=== PATIENT | male | born 1980 | race Caucasian/White ===

== ENCOUNTER 2020-01-09 21:38 | Inpatient (IN) | payer OTHER ==
[~2020-01-09] VITALS: Ht 182.9 cm; Wt 89.2 kg
[2020-01-09 21:55] LABS: BASOPHILS ABSOLUTE AUTO 0.04 K/mm3 (0.00-0.23); BASOPHILS PERCENT AUTO 0 % (0-2); EOSINOPHILS ABSOLUTE AUTO 0.06 K/mm3 (0.00-0.68); EOSINOPHILS PERCENT AUTO 1 % (0-6); Hematocrit 47.6 % (37.0-53.0); Hemoglobin 15.4 g/dL (13.5-17.5); IMMATURE GRAN ABSOLUTE AUTO 0.36 K/mm3 (0.00-0.10); IMMATURE GRAN PERCENT AUTO 3 % (0-1); LYMPHOCYTES ABSOLUTE AUTO 5.79 K/mm3 (0.84-5.20); LYMPHOCYTES PERCENT AUTO 54 % (21-46); MONOCYTES ABSOLUTE AUTO 0.64 K/mm3 (0.16-1.47); MONOCYTES PERCENT AUTO 6 % (4-13); Mean Corpuscular HGB Conc 32.4 g/dL (31.5-36.5); Mean Corpuscular Volume 96 fL (80-100); Mean Platelet Volume 9.1 fL (9.1-12.4); NEUTROPHILS ABSOLUTE AUTO 3.81 K/mm3 (1.96-9.15); NEUTROPHILS PERCENT AUTO 36 % (41-73); NRBC ABSOLUTE 0.02 K/mm3 (0.00-0.02); NRBC Auto 0.2 /100 WBC (0.0-0.2); Platelet Count 305 K/mm3 (150-400); RDW Coefficient Variation 12.5 % (11.7-14.2); RDW Standard Deviation 43.8 fL (35.1-46.3); Red Blood Cell Count 4.96 M/mm3 (4.30-5.90)
[2020-01-09 22:08] LABS: Source, Urine Catheter
[2020-01-09 22:15] LABS: Ethanol (Alcohol), Blood, Med 134 mg/dL; Troponin I <0.015 ng/mL (0.000-0.040)
[2020-01-09 22:16] LABS: Alanine Aminotransfer (ALT/SGP 117 U/L (12-78); Albumin, Blood 3.8 g/dL (3.4-5.0); Alk Phos 118 U/L (50-136); Anion Gap 10 mmol/L (6-16); Aspartate Aminotrans (AST/SGOT 116 U/L (12-37); Bilirubin, Total 0.2 mg/dL (0.1-1.0); Blood Urea Nitrogen 12 mg/dL (8-24); CO2, Blood 24 mmol/L (21-32); Chloride, Blood 108 mmol/L (98-108); Globulin, Blood 3.8 g/dL (2.2-4.0); Glomerular Filtration Rate >60 (60-); Glucose, Blood 156 mg/dL (70-99); Potassium, Blood 3.7 mmol/L (3.5-5.5); Sodium, Blood 142 mmol/L (136-145); Total Protein, Blood 7.6 g/dL (6.4-8.2)
[2020-01-09 22:19] LABS: PO2 Arterial 101 mmHg (80-100)
[2020-01-09 22:20] LABS: PCO2 Arterial 72.7 mmHg (35-45)
[2020-01-09 22:23] LABS: Appearance, Urine Hazy (Clear); Bacteria Few /hpf; Bilirubin, Urine Neg (Neg); Blood, Urine 2+ (Neg); Color, Urine Pale Yellow (P-Yellow); Glucose Qualitative, Urine Neg (Neg); Ketones, Urine Neg (Neg); Leukocyte Esterase, Urine Neg (Neg); Nitrite, Urine Neg (Neg); Protein, Urine 2+ (Neg); Red Blood Cells, Urine 0-2 /hpf (0-2); Specific Gravity, Urine 1.025 (1.003-1.022); Squamous Epithelial Cells Not Seen /hpf (Few); Urobilinogen, Urine NORM (Normal); White Blood Cells, Urine Rare /hpf (0-5)
[2020-01-09 22:24] LABS: Amorphous Mod (0-Heavy); Mucus Light (0-Heavy)
[2020-01-09 22:25] LABS: U Amphetamine Screen DETECTED
[2020-01-09 22:26] LABS: U Barbituate Screen Not Detected; U Benzodiazapine Screen Not Detected; U Buprenorphine Screen Not Detected; U Cannabinoids Screen DETECTED; U Cocaine Screen Not Detected; U Methadone Screen Not Detected; U Methamphetamine Screen Not Detected; U Opiates Screen Not Detected; U Oxycodone Screen Not Detected; U Phencyclidine Screen Not Detected; U Propoxyphene Screen Not Detected
[2020-01-09 23:32] LABS: Magnesium, Blood 2.3 mg/dL (1.6-2.4)
--- NOTE | 2020-01-10 00:02 | NUR ---
PT ARRIVED ON UNIT FROM ED S/P CARDIAC ARREST PT INTUBATED AND SEDATED. PROPOFOL INFUSING AT 20MCG/KG/MIN VIA 18G TO R AC. VENT SETTINGS: AC 18, TV 500, PEEP 10; FIO2 80%. PT IS UNRESPONSIVE AT THIS TIME. RECENTLY MEDICATED WITH VERSED WHILE PT WAS IN CT PER ED RN REPORT. HOWEVER, PER REPORT PT WAS NOTED TO OPEN EYES AND TRACK. OG TUBE HOOKED TO LIS WITH UNDIGESTED/BROWN PARTICLES NOTED IN CANISTER. LUNG SOUNDS ARE COARSE T/O ALL LOBES; ATTEMPTED ET SUCTION WITH NO RESULTS. PT APPEARS TO BE IN NSR WITH HR IN THE 90'S. BP'S ON THE SOFTER SIDE WITH SBP 70'S. CALLED DR. QUIROZ WITH ORDERS TO ADMINSTER A 500CC BOLUS OF NS; IF UNEFFECTIVE ADMINSTER A SECOND 500CC BOLUS OF NS. BOLUS IS CURRENTLY INFUSING AT THIS TIME; WILL CONTINUE TO MONITOR AND ASSESS. TEMP ZAMUDIO PROBE IS PATENT AND DRAINING HAZY, YELLOW URINE TO GRAVITY. NO FAMILY AT BEDSIDE; NOR HAS FAMILY CALLED UNIT TO CHECK ON PT'S STATUS.
[2020-01-10 03:19] LABS: BASOPHILS PERCENT AUTO 0 % (0-2); EOSINOPHILS PERCENT AUTO 0 % (0-6); Hematocrit 44.4 % (37.0-53.0); Hemoglobin 14.8 g/dL (13.5-17.5); IMMATURE GRAN PERCENT AUTO 0 % (0-1); LYMPHOCYTES ABSOLUTE AUTO 0.52 K/mm3 (0.84-5.20); LYMPHOCYTES PERCENT AUTO 43 % (21-46); MONOCYTES ABSOLUTE AUTO 0.02 K/mm3 (0.16-1.47); MONOCYTES PERCENT AUTO 2 % (4-13); Mean Corpuscular HGB 31.3 pg (26.0-34.0); Mean Corpuscular HGB Conc 33.3 g/dL (31.5-36.5); Mean Corpuscular Volume 94 fL (80-100); NEUTROPHILS ABSOLUTE AUTO 0.67 K/mm3 (1.96-9.15); NEUTROPHILS PERCENT AUTO 55 % (41-73); Platelet Count 190 K/mm3 (150-400); RDW Coefficient Variation 12.6 % (11.7-14.2); RDW Standard Deviation 43.4 fL (35.1-46.3); Red Blood Cell Count 4.73 M/mm3 (4.30-5.90); White Blood Cell Count 1.21 K/mm3 (4.00-11.30)
[2020-01-10 03:40] LABS: Alanine Aminotransfer (ALT/SGP 90 U/L (12-78); Alk Phos 72 U/L (50-136); Anion Gap 4 mmol/L (6-16); Aspartate Aminotrans (AST/SGOT 91 U/L (12-37); Bilirubin, Total 0.5 mg/dL (0.1-1.0); Blood Urea Nitrogen 16 mg/dL (8-24); Bun/Creatinine Ratio 14.3 (12.0-20.0); CO2, Blood 26 mmol/L (21-32); Calcium, Blood 7.6 mg/dL (8.5-10.1); Chloride, Blood 113 mmol/L (98-108); Creatinine, Blood 1.12 mg/dL (0.60-1.20); Glomerular Filtration Rate >60 (60-); Glucose, Blood 87 mg/dL (70-99); Potassium, Blood 4.4 mmol/L (3.5-5.5); Sodium, Blood 143 mmol/L (136-145)
--- NOTE | 2020-01-10 05:18 | NUR ---
END OF SHIFT SUMMARY PT HAS REMAINED INTUBATED/SEDATED. PROPOFOL AT 30MCG/KG/MIN. VENT SETTINGS REMAIN UNCHANGED WITH AC 18, TV 500, PEEP 10, FIO2 60%. PT APPEARS COMFORTABLY SEDATED. STILL ABLE TO OPEN EYES TO VERBAL/NOXIOUS STIMULI. ABLE TO FOLLOW COMMANDS. REORIENTED TO EVENT AND PLACE. PT CONTINUES TO HAVE A PRODUCTIVE COUGH PRODUCING COPIOUS AMOUNTS OF THICK, BROWN SECRETIONS S/P ASPIRATION IN THE FIELD WHEN SHAWNA TUBE WAS IN PLACE. PT IS CURRENTLY RECEIVING IV ZOSYN FOR ABO COVERAGE. BLOOD PRESSURES REMAIN ON THE SOFTER SIDE WITH SYSTOLIC IN THE 90'S; HOWEVER, MAP'S HAVE BEEN GREATER THAN 60 MMHG. PT REMAINS NSR WITH HR 90'S. PT RECEIVED A 1L BOLUS D/T LOW BP'S FOLLOWED BY MAINTENANCE FLUID AT 75MLS/HR. ZAMUDIO CATHETER REMAINS PATENT AND DRAINING HAZY YELLOW URINE TO GRAVITY. BILATERAL SOFT WRIST RESTRAINTS REMAIN IN PLACE TO PREVENT SELF EXTUBATION. WILL CONTINUE TO MONITOR UNTIL REPORT IS HANDED OFF TO ONCOMING RN.
[2020-01-10 05:20] LABS: PCO2 Arterial 44.2 mmHg (35-45); PO2 Arterial 88.7 mmHg (80-100); pH Blood Arterial 7.35 (7.35-7.45)
--- NOTE | 2020-01-10 09:40 | NUR ---
DR MATIAS IN TO ASSESS PT. PROPOFOL PLACED ON STANDBY AT THIS TIME W/ INTENTIONS TO EXTUBATE.
--- NOTE | 2020-01-10 13:49 | NUR ---
PT UPDATE: COMPLETED SWALLOW EVALUATION. PT DID WELL WITH ALL ASPECTS OF TESTS. PT WAS GIVEN SOME APPLE JUICE AND JELLO AFTER PASSING SWALLOW EVAL. WILL DISCUSS ADVANCING DIET WITH
--- NOTE | 2020-01-10 16:29 | NUR ---
SHIFT SUMMARY: PT WAS EXTUBATED AT 0950 THIS AM AND INITIALLY ON 6L 02 VIA OXYMIZER, PT'S SPO2 DECREASES R/T PT MOUTH BREATHING. PT NOW ON 4L 02 VIA N/C AND MAY BE ABLE TO CONTINUE TO WEAN DOWN 02. PT ABLE TO USE CALL LIGHT APPROPRIATELY. ANSWERS QUESTIONS APPROPRIATELY AND FOLLOWS COMMANDS. PT REC'ING IV FENTANYL FOR CHEST PAIN R/T CPR. LUNGS ARE COARSE T/O ALL LUNG ANN, THAT CLEAR WITH STRONG COUGH. PT CONTINUE TO PRODUCE COPIOUS AMTS OF THICK, BROWN SPUTUM. HR REGULAR, SR-90'S RANGE. NS-TKO ABD SOFT/ROUND/NON-TENDER TO PALPATION. BT'S ACTIVE X 4 QUADS. ADVANCE DIET TOLERATED. ZAMUDIO CATHETER IN PLACE DRAINING CLEAR, YELLOW URINE TO GRAVITY. PT ASKED TO LEAVE ZAMUDIO IN PLACE A LITTLE LONGER HE IS STILL SOMEWHAT DROWSY AND WORRIED HE WILL BE INCONTINENT.
--- NOTE | 2020-01-10 18:17 | NUR ---
SHIFT SUMMARY: PT WAS EXTUBATED EARLIER THIS SHIFT. LUNGS REMAIN COARSE T/O AT TIMES, HOWEVER, BECOME CLEAR AFTER HIS PRODUCTIVE COUGH THAT PRODUCES THICK, BROWN SPUTUM. CURRENTLY ON 4L 02 VIA N/C WITH SP02 >90%. PT REMAINS SOMEWHAT DROWSY SINCE EXTUBATION, BUT AWAKENS EASILY TO VERBAL STIMULI. ANSWERS QUESTIONS APPROPRIATELY AND ABLE TO REPOSITION SELF IN BED WITH MINIMAL ASSISTANCE. PT MEDICATED WITH FENTANYL FOR CHEST PAIN R/T CPR. PT STARTED ON CLEAR LIQUID AND TOLERATING WELL, AFTER PASSING BEDSIDE SWALLOW EVALUATION. CAN ADVANCE TOLERATED.
--- NOTE | 2020-01-10 19:00 | NUR ---
INITAL SHIFT ASSESSMENT BED SIDE REPORT RECIEVED FROM OFF GOING RN RANDA. PT IS STABLE AT THIS TIME. ALERT AND ORIENTED. STATES HE HAS CHEST PAIN WHEN MOVING, BUT NONE AT REST. HE IS REQUESTING SOMETHING FOR PAIN RELIEF AT THIS TIME. WILL GIVE HIM IV FENTANYL AND MONITOR FOR RELIEF. PT HAS CALL LIGHT WITHIN REACH AND BED IN LOW POSITION. OVERALL ASSESSMENT IS BENIGN. ZAMUDIO CATH IN PLACE DRAINING CLEAR YELLOW URINE. 3L N/C IN PLACE WITH NO S/S OF RESPIRATORY DISTRESS. WILL CON'T TO TITRATE DOWN OXYGEN INDICATED T/O SHIFT. PT IS DRINKING LOTS OF WATER, BUT DOES NOT WANT ANY FOOD CURRENTLY. VITALS ARE STABLE. WILL CON'T TO MONITOR PT AND KEEP SAFE T/O SHIFT.
--- NOTE | 2020-01-10 19:04 | NUR ---
REPORTED OFF TO BERNAROD TURNER WHOM WILL NOW ASSUME CARE OF THIS PT.
--- NOTE | 2020-01-11 00:37 | NUR ---
SHIFT UPDATE PT HAS BEEN RESTING MOST OF THE NIGHT. HE IS REPOSITIONING HIMSELF IN BED. OFFERED TO GIVE HIM MORE FENTANYL IV FOR PAIN CONTROL TO CHEST, BUT HE DID NOT WANT ANY. HE STATES HE IS FINE UNLESS HE IS MOVING ABOUT. VITALS CON'T TO BE STABLE. WILL CON'T TO MONITOR PT.
[2020-01-11 03:06] LABS: Hematocrit 38.3 % (37.0-53.0); Hemoglobin 12.9 g/dL (13.5-17.5); Mean Corpuscular HGB Conc 33.7 g/dL (31.5-36.5); Mean Corpuscular Volume 92 fL (80-100); Platelet Count 166 K/mm3 (150-400); RDW Coefficient Variation 12.5 % (11.7-14.2); RDW Standard Deviation 42.1 fL (35.1-46.3); Red Blood Cell Count 4.16 M/mm3 (4.30-5.90); White Blood Cell Count 8.86 K/mm3 (4.00-11.30)
[2020-01-11 03:22] LABS: Albumin, Blood 2.6 g/dL (3.4-5.0); Anion Gap 4 mmol/L (6-16); Blood Urea Nitrogen 12 mg/dL (8-24); Bun/Creatinine Ratio 15.7 (12.0-20.0); CO2, Blood 28 mmol/L (21-32); Calcium, Blood 7.9 mg/dL (8.5-10.1); Chloride, Blood 107 mmol/L (98-108); Creatinine, Blood 0.77 mg/dL (0.60-1.20); Glomerular Filtration Rate >60 (60-); Glucose, Blood 101 mg/dL (70-99); Potassium, Blood 3.6 mmol/L (3.5-5.5); Sodium, Blood 139 mmol/L (136-145)
[2020-01-11 03:39] LABS: BAND PERCENT MAN 30 % (0-8); BASOPHILS PERCENT MAN 0 % (0-2); EOSINOPHILS PERCENT MAN 0 % (0-6); LYMPHOCYTES ABSOLUTE MAN 1.06 K/mm3 (0.84-5.20); LYMPHOCYTES PERCENT MAN 12 % (21-46); METAMYELOCYTE ABSOLUTE MAN 0.17 K/mm3 (0.00-0.00); METAMYELOCYTE PERCENT MAN 2 % (0-0); MONOCYTES ABSOLUTE MAN 0.26 K/mm3 (0.16-1.47); MONOCYTES PERCENT MAN 3 % (4-13); NEUTROPHILS ABSOLUTE MAN 7.35 K/mm3 (1.96-9.15); SEG NEUTROPHILS PERCENT MAN 53 % (41-73); TOTAL CELLS COUNTED 100
--- NOTE | 2020-01-11 05:17 | NUR ---
SHIFT SUMMARY PT CON'T TO BE STABLE. HE IS PLESANT AND COOPERTIVE WITH HIS CARE. REQUESTED PAIN MEDICATIONS THIS AM. FENTANYL WAS GIVEN WITH GOOD RELIEF PT STATES. GOOD URINE OUTPUT IN ZAMUDIO CATH. OXYGEN CON'T TO BE ON R/T PT DOES HAVE A DIP IN OXYGEN SATS WHILE SLEEPING. VITALS HAVE BEEN STABLE. CALL LIGHT IN REACH. PT IS RESTING WITH EYES CLOSED AT THIS TIME. WILL CON'T TO MONITOR PT TILL REPORT TO AM RN.
--- NOTE | 2020-01-11 08:18 | NUR ---
ASSUMED CARE THIS AM PT. ALERT AND ORIENTED THIS AM. REPORTS PAIN WHEN COUGHING AND REPOSITIONING TO CHEST WALL. PT. DENIES CP AT REST. PT. VSS THIS AM. TEMP OF 99.1 CORE. PT. ON 2LNC, CONTINUES TO COUGH UP THICK BROWN SECRETIONS. PT ABLE TO REPOSITION SELF IN BED NEEDED. CALL LIGHT IN REACH, REFRESHMENTS AT BEDSIDE.
--- NOTE | 2020-01-11 08:27 | NUR ---
DR. RAMIREZ IN TO SEE PT PLANS FOR TRANSFER TO MEDICAL FLOOR.
--- NOTE | 2020-01-11 09:13 | NUR ---
REPORT TO MEDICAL FLOOR RN PT AND ALL BELONGINGS TAKEN TO MEDICAL FLOOR WITH PT. VSS UPON TRANSFER.
--- NOTE | 2020-01-11 10:00 | NUR ---
PATIENT TRANSFERRED FROM ICU 7 TO ROOM 326. REPORT RECEIVED FROM BERNARDO LYNN. SLIDER SHEET USED TO TRANSFER PATIENT. FENTANYL GIVEN PRIOR TO TRANSFER. PATIENT REMAINS VERY PAINFUL IN CHEST WITH MOVEMENT AND COUGH. CAUGHING UP LARGE AMOUNT OF SPUTUM. 2LO2 TO MAINTAIN SATS. ZAMUDIO D/C'D PRIOR TO TRANSFER. ROCEPHIN INFUING TO R AC IV. PATIENT ORIENTED TO ROOM AND USE OF CALL LIGHT. PT ORDERS PLACED. SR ON TELE IN THE 80'S PER REPORT. PATIENT DENIES ANY NEEDS AT THIS TIME.
--- NOTE | 2020-01-11 16:11 | NUR ---
Echocardiogram completed.
--- NOTE | 2020-01-11 17:39 | NUR ---
PATIENT A/OX4, UP WITH SBA TO RESTROOM. PT/OT EVAL TODAY. PATIENT IS STEADY ON HIS FEET, BUT VERY PAINFUL IN HIS CHEST WITH MOVEMENT DUE TO CPR. TREATING PAIN WITH FENTANYL AND TRAMADOL. TREATING PNA WITH ROCEPHIN, PATIENT COUGHING UP MODERATE AMOUNT OF BROWN SPUTUM. 2LO2 TO MAINTAIN SATS. VSS. PATIENT HAS VERY POOR APPETITE, ABLE TO DRINK PLENTY OF FLUIDS. CHEST X-RAY JUST COMPLETED, HAVE NOT SEEN REPORT. ZAMUDIO D/C'D THIS AM AND PATIENT IS VOIDING IN URINAL. NORMAL FORMED BM THIS AFTERNOON. SKIN INTACT. 2 IV SITES WNL AND SL. CALM AND COOPERATIVE WITH CARE, CALLS APPROPRIATELY FOR ASSISTANCE.
[2020-01-12 04:52] LABS: BASOPHILS ABSOLUTE AUTO 0.01 K/mm3 (0.00-0.23); BASOPHILS PERCENT AUTO 0 % (0-2); Hematocrit 37.1 % (37.0-53.0); Hemoglobin 12.7 g/dL (13.5-17.5); LYMPHOCYTES ABSOLUTE AUTO 0.74 K/mm3 (0.84-5.20); LYMPHOCYTES PERCENT AUTO 10 % (21-46); MONOCYTES ABSOLUTE AUTO 0.23 K/mm3 (0.16-1.47); MONOCYTES PERCENT AUTO 3 % (4-13); Mean Corpuscular HGB 30.7 pg (26.0-34.0); Mean Corpuscular HGB Conc 34.2 g/dL (31.5-36.5); Mean Corpuscular Volume 90 fL (80-100); Mean Platelet Volume 8.9 fL (9.1-12.4); Platelet Count 174 K/mm3 (150-400); RDW Coefficient Variation 12.2 % (11.7-14.2); RDW Standard Deviation 39.8 fL (35.1-46.3); Red Blood Cell Count 4.14 M/mm3 (4.30-5.90); White Blood Cell Count 7.24 K/mm3 (4.00-11.30)
[2020-01-12 04:53] LABS: EOSINOPHILS ABSOLUTE AUTO 0.12 K/mm3 (0.00-0.68); EOSINOPHILS PERCENT AUTO 2 % (0-6); IMMATURE GRAN ABSOLUTE AUTO 0.12 K/mm3 (0.00-0.10); IMMATURE GRAN PERCENT AUTO 2 % (0-1); NEUTROPHILS ABSOLUTE AUTO 6.02 K/mm3 (1.96-9.15); NEUTROPHILS PERCENT AUTO 83 % (41-73)
--- NOTE | 2020-01-12 05:12 | NUR ---
BUILDING ARCHITECTURAL DESIGNER SUMMARY NO ACUTE CHANGES THIS SHIFT. PT AAOX4 AND PLEASANT. TREATED FOR CHEST/RIB PAIN WITH TRAMADOL AND FENTANYL PER EMAR WITH GOOD PAIN RELIEF. PAIN RELATED TO CHEST COMPRESSIONS PRIOR TO ADMIT. PT HAS USED URINAL AT BEDSIDE. REMAINS ON 2L O2 VIA NC, LUNGS COARSE THROUGHOUT. PT STILL COUGHING UP THICK BROWN MUCUS. VSS, WILL CONTINUE TO MONITOR.
[2020-01-12 05:24] LABS: Albumin, Blood 2.5 g/dL (3.4-5.0); Anion Gap 6 mmol/L (6-16); Blood Urea Nitrogen 11 mg/dL (8-24); Bun/Creatinine Ratio 15.9 (12.0-20.0); CO2, Blood 26 mmol/L (21-32); Calcium, Blood 8.3 mg/dL (8.5-10.1); Chloride, Blood 105 mmol/L (98-108); Creatinine, Blood 0.69 mg/dL (0.60-1.20); Glomerular Filtration Rate >60 (60-); Glucose, Blood 83 mg/dL (70-99); Phosphorus, Blood 1.7 mg/dL (2.5-4.9); Potassium, Blood 3.6 mmol/L (3.5-5.5); Sodium, Blood 137 mmol/L (136-145)
--- NOTE | 2020-01-12 17:48 | NUR ---
SHIFT SUMMARY PT UP TO CHAIR INDPENDENTLY. REPORTS PAIN TO CHEST WHEN HE USES HIS ARMS OR ATTEMPTS TO REPOSITION HIMSELF IN BED. PERIODS OF COUGHING UP LARGE AMOUNTS OF THIS BROWN SPUTUM. FRIEND IN TO VISIT THIS MORNING FOR SEVERAL HOURS. OCC FEELS SHORT OF BREATH AFTER ACTIVITY OR EXERTION. REPORTS A POOR APPETITE. EATING ONLY SMALL AMOUNTS OFF OF TRAY.
--- NOTE | 2020-01-13 06:25 | NUR ---
SHIFT SUMMARY PT IS A 40 Y/O MALE, ADMITTED FOR PS CARDIAC ARREST. HE IS A&O X 4, INDEPENDENT TO THE BATHROOM. PT HAS HAD A PRODUCTIVE COUGH WITH REDDISH BROWN, THICK SPUTUM, AND REPORTED STERNAL CHEST PAIN. PT WAS MEDICATED AT HS WITH PRN TRAMADOL. PT SLEPT WELL FOR MOST OF THE NIGHT. THIS AM AT APPROXIMATELY 0420, PT HAD A LARGE COUGHING FIT, AND C/O INCREASED CHEST PAIN THAT MOVED THE THE LEFT SIDE OF THE CHEST. TELE MONITOR SHOWED NO CHANGES, NSR IN THE 70S. PT'S O2 SATS WERE LOW AT THAT TIME, AND HIS O2 WAS INCREASED FROM 2L TO 5L TO MAINTAIN SATS AT 90%. PT WAS MEDICATED WITH TRAMADOL FOR PAIN. ON RECHECK AT 0530, PT REPORTED PAIN WAS UNCHANGED AT 8/10. O2 SATS WERE IMPROVED, AND O2 DECREASED BACK DOWN TO 2L VIA NC WITH SATS AT 95-96%. AN EKG WAS OBTAINED, WHICH SHOWED NSR. THE HOSPITALIST DR QUIROZ WAS NOTIFIED, AND SL NITRO ORDERED. PT WAS MEDICATED WITH PRN IV FENTANYL FOR THE PAIN, WHICH DECREASED PAIN FROM AN 8 TO 5/10. VITAL SIGNS OTHERWISE STABLE. PT REPORTING CHRONIC SOB SINCE ADMISSION DUE TO PAIN. NO COMPLAINTS OF NAUSEA. NO OTHER ACUTE CHANGES IN PT CONDITION NOTED DURING THE NIGHT. WILL CONTINUE TO MONITOR AND TREAT PER EMAR UNTIL HAND OFF TO DAY SHIFT RN.
--- NOTE | 2020-01-13 18:04 | NUR ---
SHIFT SUMMARY PT HAS BEEN ON AND OFF O2 TODAY. IT WAS REMOVED THIS MORNING AND WAS MAINTAINING WELL. SHOWER WAS TAKEN AND TOLERATED AND SAID HE WAS STARTING TO FEEL MUCH BETTER. L CHEST PAIN HAD RESOLVED. WAS GETTING SHORTS AND SLIPPERS ON FOR A WALK THIS AFTERNOON AND HAD A COUGHING EPISODE. WHEN SEEN NO COUGHING OR SOB NOTED BUT SATS CHECKED PRIOR TO WALK AND THEY WERE 87-88% ON RA. TOOK HIM FOR A WALK AND SATS DROPPED TO 84%. STATED HE FELT JUST A LITTLE DIZZY. ON RETURN TO ROOM O2 AT 1L/M PLACED AND CHECKED LATER WITH THEM BEING 95%. O2 REMOVED AND SATS STABLE 90-91% WITH NO SOB AT REST AND CHATTING EASILY. EAT MOST OF HIS DINNER TONIGHT SO APPETITE IMPROVING.
--- NOTE | 2020-01-13 19:55 | NUR ---
THIS NURSE RECEIVED TELEPHONE CALL FROM SHABANA MCCABE--AUNT WHOM ON RELEASE OF INFORMATION; PT SLIGHTLY RUDE AND ANGRY WHILE ASKING QUESTIONS OF PATIENTS CURRENT HEALTH; THIS NURSE PROVIDED LISTENING EAR; PT AUNT VOICED CONCERNED HE DOES NOT TAKE METH OR IS NOT AWARE THAT HE DOES OR NOT; PT DOES DRINK ALOT OF REDBULLS ENERGY DRINKS PER AUNT AT TIMES.
--- NOTE | 2020-01-14 04:57 | NUR ---
SHIFT SUMMARY: 40 Y/O MALE RESTED COMFORTABLY MAJORITY OF SHIFT; PT HAD OCCASIONAL HARSH PRODUCTIVE COUGHING SPEELS WITH THICK YELLOW/RED PHELGM NOTED; PT TOOK ULTRAM 50MG PO TWICE WITH GOOD RELIEF NOTED; PT ALERT AND ORIENTED X 4; PT VOICE CLEAR AND AUDIBLE; PT EDUCATED ON NEED TO AVOID ETOH AND METH USAGE--PT VOICED HE USED METH JUST 1 WEEK AGO DURING ASSESSMENT BY THIS NURSE; PT APPEARS TO STILL BE IN DENIAL ABOUT NEED TO CHANGE LIFE STYLE AT THIS POINT IN TIME; BED LOW POSITION WITH CALL LIGHT AT SIDE.
--- NOTE | 2020-01-14 16:50 | NUR ---
SHIFT SUMMARY PT HAS BEEN UP AMBULATING IN HALLWAY SEVERAL TIMES TODAY ON RA. THIS MORNING SATS DOWN TO 85% ON RA BUT THIS AFTERNOON REMAINED IN THE LOW 90'S WITH WALK. FRIEND IN TO VISIT FOR A PERIOD OF TIME. APPETITE CONTINUES TO IMPROVE. STATED TORADOL HAS HELPED PAIN QUITE A BIT. BREATHING SEEMS LESS LABORED THAN YESTERDAY WITH LESS DISTRESS WITH ACTIVITY.
--- NOTE | 2020-01-14 19:10 | NUR ---
ASSUMED CARE RECEIVED REPORT FROM BERNARDO PANDEY. ASSUMED CARE OF PT. SITTING IN BED WATCHING TV, NO S/S ACUTE DISTRESS NOTED. RESTING COMFORTABLY AT THIS TIME. DENIES NEEDS. CALL LIGHT, POSSESSIONS IN REACH. BED IN LOWEST POSITION WITH ALARMS ON. WILL CONTINUE TO MONITOR.
--- NOTE | 2020-01-15 03:50 | NUR ---
SHIFT SUMMARY PT HAS HAD AN UNEVENTFUL NIGHT. NO ACUTE EVENTS NOTED. WAS MONITORED EVERY 1-2 HOURS WITH NEEDS MET. NO C/O CP, PRESSURE, SOB. PAIN MANAGED WITH MEDS PER EMAR AND UNINTERRUPTED REST. PT REPORTING THAT KETOROLAC SEEMS TO HELP WITH THE DISCOMFORT IN HIS CHEST R/T CPR. CONTINUES TO EXPECTORATE BROWN, BLOOD-TINGED SPUTUM, PT STATES IT HAS CONTINUED TO IMPROVE. SPLINTING NEEDED TO PROMOTE NORMAL RESPIRATORY PATTERNS. PT PLEASANT, COOPERATIVE WITH CARES. CALLS APPROPRIATELY FOR NEEDS. PT SLEPT T/O. CALL LIGHT, POSSESSIONS IN REACH, BED IN LOWEST POSITION WITH ALARMS ON. WILL CONTINUE TO MONITOR UNTIL DAY RN ASSUMES CARE.
[2020-01-15] MEDS ORDERED: AMOCLA875 PO (12:41)
[2020-01-15] MEDS ORDERED: NAPR500EC PO (12:41)
[2020-01-15] MEDS ORDERED: ONE DAILY MUL400 MCG PO (12:42)
[2020-01-15] MEDS ORDERED: ALBU90OI INH (12:44)
--- NOTE | 2020-01-15 13:11 | NUR ---
DISCHARGE DISCHARGE INSTRUCTIONS, MEDICATION LIST AND FOLLOW UP APPOINTMENT REVIEWED WITH PT. QUESTIONS/CONCERNS ANSWERED. NEW SCRIPS FAXED TO [facility] IN [place] PER PT PREFERRENCE. PT VERBALLY INDICATED UNDERSTANDING OF ALL INSTRUCTIONS RECEIVED. ESCORTED OUT BY LAURYN
== END 2020-01-15 13:08 | disposition home or self-care (01) | DRG 917 ==
LOC: ER 21:38 → MEDS 23:14 → ICUW 23:14 → EDBD 23:14 → ICUE 23:14 → MEDS 23:39
PROVIDERS: Family Medicine; Physician Assistant; Student in an Organized Health Care Education/Training Program; ADMIT Internal Medicine
PROC: 0BH18EZ Insertion of Endotracheal Airway into Trachea, Via Natural or Artificial Opening Endoscopic (ICD-10-PCS; principal; 2020-01-09)
PROC: 5A1935Z Respiratory Ventilation, Less than 24 Consecutive Hours (ICD-10-PCS; 2020-01-09)
DX: T65.91XA Toxic effect of unspecified substance, accidental (unintentional), initial encounter (principal); J69.0 Pneumonitis due to inhalation of food and vomit; J96.90 Respiratory failure, unspecified, unspecified whether with hypoxia or hypercapnia; I46.8 Cardiac arrest due to other underlying condition; E87.4 Mixed disorder of acid-base balance; E86.0 Dehydration; F10.129 Alcohol abuse with intoxication, unspecified; Y90.6 Blood alcohol level of 120-199 mg/100 ml; F15.10 Other stimulant abuse, uncomplicated; E83.39 Other disorders of phosphorus metabolism; Y92.9 Unspecified place or not applicable
CPT/HCPCS: 31500; 31720; 36415; 36600; 51702; 70450; 71045; 71046; 80053; 80069; 81001; 82803; 83735; 84484; 85025; 87070; 87205; 93005; 93010; 93306; 94002; 94003; 94640; 94760; 96374-59; 96375-59; 97162; 97165; 97530; 99291-25; 99292; G0480; J0696; J1650; J1885; J2250; J2543; J2704; J3010; J7030